=== PATIENT | female | born 1990 | race African-American/Black ===

== ENCOUNTER 2023-08-29 11:24 | Outpatient (OUT) | payer OTHER, SELFPAY | END 2023-08-29 11:25 | disposition home or self-care (01) | LOC: VC 11:24 | PROVIDERS: PCP Radiology Diagnostic Radiology; Visit Provider Radiology Diagnostic Radiology | DX: I83.819 Varicose veins of unspecified lower extremity with pain (principal) ==

== ENCOUNTER 2023-09-20 13:17 | Outpatient (OUT) | payer OTHER, SELFPAY ==
--- NOTE | 2023-09-20 | VEIN_ITS ---
Patient: BREANNE MOURA Exam Date: 09/20/2023 : 1990 Gender:F Ordering : DR TAY VILLELA M.D. Admission #: [id number] Family : Order #: [id number] CLICK HERE TO VIEW EXAM RADIOLOGY REPORT PROCEDURE: VC EXT VENOUS REFLUX DANIEL LMTD COMPARISON: None. INDICATIONS: Pain due to varicose veins of bilateral legs I83.813 TECHNIQUE: Duplex imaging of the lower extremity to assess the deep and superficial venous system for the presence of deep or superficial venous incompetence and to document the location and severity of disease. The study includes evaluation of the great saphenous vein (GSV), anterior accessory saphenous vein (AASV) and small saphenous vein (SSV). Patient scanned in reverse Trendelenburg and standing. FINDINGS: RIGHT LOWER EXTREMITY: Saphenofemoral Junction Reflux: Yes 9.6mm 2.8 sec GSV: Diam (mm) Reflux/ Time (sec) Proximal Thigh 7.0 Yes 0.5 Mid Thigh 6.7 No Distal Thigh 4.1 No Prox Calf 3.9 No Mid Calf 3.3 No Saphenopopliteal Junction Reflux: 3.7mm No SSV: Proximal Calf 3.7 No Mid Calf 2.6 No AASV: Proximal Thigh 4.7 No Mid Thigh 2.9 No Distal Thigh Thrombi: No acute or chronic thrombus Compressibility: Flow: Preforator: Mid medial lower leg measures 2.7 mm with 2.8s of reflux. Tech Note: Incompetent SFJ/ competent SPJ. Patent varicose vein visualized on the mid medial thigh measures 3.3 mm with 0.7s of reflux. Patent varicose vein visualized on the proximal medial lower leg measures 2.6 mm with 1.4s of reflux. 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 Tech Note: Competent SFJ/SPJ. Patent varicose vein visualized on the distal medial lower leg measures 4.8 mm with 0.7s of reflux. CONCLUSION: Minimal reflux proximal right great saphenous vein Small bilateral incompetent varicose veins, left greater than right Dictated by: Tay Villela MD on 09/20/2023 at 14:28 Approved by: Tay Villela MD on 09/20/2023 at 14:30
--- NOTE | 2023-09-20 | VEIN_ITS ---
Patient: BREANNE MOURA Exam Date: 09/20/2023 : 1990 Gender:F Ordering : DR TAY VILLELA M.D. Admission #: [id number] Family : Order #: [id number] CLICK HERE TO VIEW EXAM RADIOLOGY REPORT PROCEDURE: FACILITY [facility] - OFFICE VISIT INITIAL COMPARISON: None. PROGRESS NOTES: 33-year-old female who presents with a 5 year history of lower extremity pain swelling and varicose veins, the patient complains of bilaterally symmetric symptoms with more visual veins on the right leg. The patient describes the pain as heaviness burning and aching rating the pain as a 7 on a scale of 1-10. The patient's symptoms are progressed by prolonged sitting and standing and by heavy lifting required of her job. The patient's symptoms are partially relieved by rest, leg elevation, knee high support stockings and over the counter ibuprofen as well as exercise. The patient denies any signs and symptoms to suggest arterial ischemia. The patient describes a family history significant for varicose veins in her mother. Cervical cancer in her mother. Type 2 diabetes in her father The patient has no history of smoking. Social alcohol. The patient does smoke marijuana. Past medical history is significant for migraine headaches. . No past surgeries. No history of deep venous thrombus or pulmonary embolus. See separate history and physical for medication list. No prior treatment for varicose or spider veins. Nursing notes were reviewed. After history and physical exam I discussed at length the pathophysiology of venous hypertension and possible treatments, therapies and strategies available. We discussed at length the importance of elevating the lower extremities above the level of the heart, increased physical activity and compression stocking use. I suspect the patient will have progression of her venous disease in light of her physical exam despite only having minimal disease in the right proximal great saphenous vein at this time. I discussed natural progression of disease with her and recommended follow-up in 12-24 months. Self pay micro foam chemical ablation and injection sclerotherapy was offered to the patient. Ultrasound venous reflux study performed the same day was discussed at length with the patient. The report demonstrates minimal reflux in the proximal right great saphenous vein. Bilateral incompetent varicose veins. PHYSICAL EXAM: The right leg demonstrates scattered varicose reticular and spider veins most significant along the lateral thigh and lower leg. No hemosiderin staining. No active ulceration or subcutaneous edema. The left leg demonstrates scattered varicose reticular and spider veins scattered throughout the leg. No hemosiderin staining. No active ulceration or subcutaneous edema. Both thighs, legs and feet were symmetrically warm to the touch. Good posterior tibial and dorsalis pedis pulses were present bilaterally. VEIN/VC Facility EST Comprehensive IMPRESSION: 1. Minimal proximal right great saphenous vein venous insufficiency 2. Mild bilateral lower extremity in com varicose veins 3. No lower extremity subcutaneous edema 4. No flow significant arterial disease 5. CEAP: C2, Ep, As, Pr PLAN: 1. Continued use of the or thigh-high 20-30 mm compression stockings 2. Elevated legs and increased physical activity for symptomatic relief 3. Follow-up in 1 year 4. Self pay micro foam chemical ablation and injection sclerotherapy Nurse notes, history and physical were reviewed and confirmed, see attached forms. The nurse was present throughout the physical exam and consultation Dictated by: Tay Villela MD on 09/20/2023 at 15:03 Approved by: Tay Villela MD on 09/20/2023 at 15:08
== END 2023-09-20 13:18 | disposition home or self-care (01) ==
LOC: VC 13:17
PROVIDERS: PCP Radiology Diagnostic Radiology; Visit Provider Radiology Diagnostic Radiology
DX: I83.813 Varicose veins of bilateral lower extremities with pain (principal)
CPT/HCPCS: 93970; G0463